=== PATIENT | female | born 1960 | race Caucasian/White ===

== ENCOUNTER 2016-12-03 06:16 | Emergency (ER) | payer MEDICAID ==
[~2016-12-03] VITALS: Ht 154.9 cm; Wt 72.7 kg
[~2016-12-03 06:16] MED LIST: BIAXIN 500MG T500 MG PO; CARAFATE 1GM1 G PO; COGENTIN .0.5 MG/TAB PO; FLAGYL500 MG PO; KEPPRA 500MG500 MG PO; KLONOPIN 0.5MG0.5 MG PO; LEVAQUIN 5500 MG/TA1 PO; NO HOME MEDICATIONS; NORCO 325 MG-51 TAB PO; NORCO 325 MG-7.1 TAB; PHENERGAN 25 TA25 MG PO; PRIL40 PO; PRILOSEC 20MG20 MG PO; PROTONIX 40MG T40 MG; PROTONIX 40MG T40 MG PO; RISPERDAL2 MG PO; ZOFRAN 4MG T4 MG/TAB PO; ZOFRAN ODT4 MG PO; [UNRECOGNIZED DRUG - OTHER]
[2016-12-03 06:19] VITALS: TEMP 98
[2016-12-03 07:33] LABS: BASO % 0.3 % (0.0-2.0); EOS % 0.1 % (0-4.0); GRAN # 10.3 (1.4-6.5); GRAN % 84.4 % (42.2-75.2); HEMATOCRIT 48.1 % (37.0-47.0); HEMOGLOBIN 16.3 g/dl (12.5-16.0); LYMPH # 1.2 (1.2-3.4); LYMPH % 9.8 % (20.0-51.0); MEAN CELL VOLUME 89 fl (80.0-100.0); MEAN CORPUSCULAR HEMOGLOBIN 30 pg (27.0-31.0); MEAN CORPUSCULAR HGB CONC 34 g/dl (33.0-37.0); MEAN PLATELET VOLUME 10.5 fl (7.4-10.4); MONO # 0.6 (0.1-0.6); MONO % 5.1 % (1.7-9.3); PLATELET COUNT 428 K/mm3 (130-400); RED BLOOD COUNT 5.43 M/mm3 (4.10-5.30); WHITE BLOOD COUNT 12.2 K/mm3 (4.8-10.8)
[2016-12-03 07:47] LABS: ADJUSTED CALCIUM 9.2 mg/dL (8.4-10.2); ALBUMIN 4.3 gm/dL (3.5-5.0); BILIRUBIN,TOTAL 0.9 mg/dL (0.0-1.0); CALCIUM 9.4 mg/dL (8.4-10.2); CREATININE, serum 0.86 mg/dL (0.52-1.25); TOTAL PROTEIN 7.6 gm/dL (6.4-8.2)
[2016-12-03 07:59] LABS: TROPONIN-I 0.012 ng/mL (0.000-0.034)
[2016-12-03 08:02] LABS: COLLECTION METHOD CLEAN CATCH
[2016-12-03 08:07] LABS: PARTIAL THROMBOPLASTIN TIME 33.1 SECONDS (26.0-37.0); PROTHROMBIN TIME 11.1 SECONDS (9.7-12.8)
[2016-12-03 08:11] LABS: MUCOUS Present /lpf; PH 5 (5-8); URINE APPEARANCE Hazy; URINE BACTERIA None Seen /hpf; URINE BILIRUBIN Negative (NEGATIVE); URINE BLOOD Negative (NEGATIVE); URINE COLOR Yellow; URINE GLUCOSE Negative (NEGATIVE); URINE KETONE 1+ (NEGATIVE); URINE LEUKOCYTE ESTERASE Negative (NEGATIVE); URINE PROTEIN(semi-quant) Negative (NEGATIVE); URINE RBC 0-2 /hpf; URINE WBC 0-2 /hpf
[2016-12-03] MEDS ORDERED: PRIL40 PO (09:15)
[2016-12-03] MEDS ORDERED: ZOFRAN8 MG PO (09:15)
[2016-12-03 09:24] VITALS: BP 112/71; PULSE 76
== END 2016-12-03 09:24 | disposition home or self-care (01) ==
LOC: COL.ER 06:16
PROVIDERS: Emergency Medicine
DX: K21.9 Gastro-esophageal reflux disease without esophagitis (principal); F31.9 Bipolar disorder, unspecified; Z87.19 Personal history of other diseases of the digestive system; Z90.710 Acquired absence of both cervix and uterus
CPT/HCPCS: J2405; J3010; J7030; Q9967

== ENCOUNTER 2016-12-19 12:42 | Day surgery (SDC) | payer MEDICAID ==
[~2016-12-19] VITALS: Ht 154.9 cm; Wt 65.7 kg
[~2016-12-19 12:42] MED LIST changes: +CARAFATE S1 GM/10 ML PO; +ZOFRAN8 MG PO
[2016-12-19 14:23] VITALS: BP 127/92; PULSE 67; TEMP 98.7
[2016-12-19 15:05] VITALS: BP 163/99; PULSE 56; TEMP 97.9
[2016-12-19 15:20] VITALS: BP 145/110; PULSE 57
[2016-12-19 15:35] VITALS: BP 163/94; PULSE 61
[2016-12-19] MEDS ORDERED: PRILOSEC 20MG20 MG PO (15:42)
[2016-12-19 15:50] VITALS: BP 171/99; PULSE 61
== END 2016-12-19 16:00 | disposition home or self-care (01) ==
LOC: SDCO 12:42
DX: K21.0 Gastro-esophageal reflux disease with esophagitis (principal); K22.2 Esophageal obstruction; K44.9 Diaphragmatic hernia without obstruction or gangrene; K29.30 Chronic superficial gastritis without bleeding; M19.90 Unspecified osteoarthritis, unspecified site; G40.909 Epilepsy, unspecified, not intractable, without status epilepticus; Z90.710 Acquired absence of both cervix and uterus; Z87.891 Personal history of nicotine dependence
CPT/HCPCS: OP; J2704; J7030

== ENCOUNTER 2017-02-22 01:02 | Emergency (ER) | payer MEDICAID ==
[2017-02-22 01:06] VITALS: TEMP 98.3
[2017-02-22 01:50] LABS: BASO # 0.1 (0.0-0.2); BASO % 0.5 % (0.0-2.0); EOS # 0.1 (0.0-0.7); EOS % 0.9 % (0-4.0); GRAN # 9.9 (1.4-6.5); GRAN % 83.7 % (42.2-75.2); HEMATOCRIT 43.1 % (37.0-47.0); HEMOGLOBIN 14.6 g/dl (12.5-16.0); LYMPH # 1.1 (1.2-3.4); LYMPH % 9.6 % (20.0-51.0); MEAN CELL VOLUME 89 fl (80.0-100.0); MEAN CORPUSCULAR HEMOGLOBIN 30 pg (27.0-31.0); MEAN CORPUSCULAR HGB CONC 34 g/dl (33.0-37.0); MEAN PLATELET VOLUME 10.2 fl (7.4-10.4); MONO # 0.6 (0.1-0.6); MONO % 4.8 % (1.7-9.3); PLATELET COUNT 355 K/mm3 (130-400); RED BLOOD COUNT 4.83 M/mm3 (4.10-5.30); REDCELL DISTRIBUTION WIDTH-CV 13.9 % (11.5-14.5)
[2017-02-22 01:59] LABS: ALANINE AMINOTRANSFERASE 24 U/L (9-52); ALKALINE PHOSPHATASE 75 U/L (50-136); ANION GAP 11 mmol/L (7-16); AST,SGOT 15 U/L (15-37); BILIRUBIN,TOTAL 0.4 mg/dL (0.0-1.0); BLOOD UREA NITROGEN 15 mg/dL (7-17); CALCIUM 9.2 mg/dL (8.4-10.2); CARBON DIOXIDE 21 mmol/L (22-30); CHLORIDE 110 mmol/L (98-107); CREATININE, serum 0.92 mg/dL (0.52-1.25); GLUCOSE 120 mg/dL (74-106); LIPASE 63 U/L (23-300); POTASSIUM 3.9 mmol/L (3.4-5.0); SODIUM 142 mmol/L (137-145); TOTAL PROTEIN 6.9 gm/dL (6.4-8.2)
[2017-02-22 02:11] LABS: TROPONIN-I < 0.012 ng/mL (0.000-0.034)
[2017-02-22 02:28] LABS: COLLECTION METHOD CLEAN CATCH
[2017-02-22 02:33] LABS: MUCOUS Present /lpf; PH 6 (5-8); URINE APPEARANCE Hazy; URINE BACTERIA Rare /hpf; URINE BILIRUBIN Negative (NEGATIVE); URINE BLOOD Negative (NEGATIVE); URINE COLOR Yellow; URINE GLUCOSE Negative (NEGATIVE); URINE KETONE Trace (NEGATIVE); URINE LEUKOCYTE ESTERASE Negative (NEGATIVE); URINE NITRATE Negative (NEGATIVE); URINE PROTEIN(semi-quant) Negative (NEGATIVE); URINE RBC 0-2 /hpf
[2017-02-22 03:06] VITALS: BP 132/106; PULSE 89
== END 2017-02-22 02:54 | disposition home or self-care (01) ==
LOC: COL.ER 01:02
PROVIDERS: Physician Assistant
DX: K29.70 Gastritis, unspecified, without bleeding (principal); K21.9 Gastro-esophageal reflux disease without esophagitis; F31.9 Bipolar disorder, unspecified; Z90.710 Acquired absence of both cervix and uterus
CPT/HCPCS: C9113; J2270; J2405; J7030

== ENCOUNTER 2018-03-12 16:03 | Emergency (ER) | payer MEDICAID ==
[~2018-03-12] VITALS: Ht 154.9 cm; Wt 56.8 kg
[2018-03-12 16:16] VITALS: TEMP 98
[2018-03-12 16:38] LABS: COLLECTION METHOD CLEAN CATCH
[2018-03-12 16:58] LABS: BASO # 0.1 (0.0-0.2); BASO % 0.6 % (0.0-2.0); EOS # 0.1 (0.0-0.7); EOS % 0.6 % (0-4.0); GRAN # 5.4 (1.4-6.5); GRAN % 66.1 % (42.2-75.2); HEMATOCRIT 44.7 % (37.0-47.0); HEMOGLOBIN 15.3 g/dl (12.5-16.0); LYMPH # 1.9 (1.2-3.4); LYMPH % 23.9 % (20.0-51.0); MEAN CELL VOLUME 88 fl (80.0-100.0); MEAN CORPUSCULAR HEMOGLOBIN 30 pg (27.0-31.0); MEAN CORPUSCULAR HGB CONC 34 g/dl (33.0-37.0); MEAN PLATELET VOLUME 9.9 fl (7.4-10.4); MONO # 0.7 (0.1-0.6); MONO % 8.6 % (1.7-9.3); PLATELET COUNT 359 K/mm3 (130-400); REDCELL DISTRIBUTION WIDTH-CV 14.2 % (11.5-14.5)
[2018-03-12 17:02] LABS: PH 5 (5-8); SQUAMOUS EPITHELIAL 20-50 /hpf; URINE APPEARANCE Cloudy; URINE BACTERIA None Seen /hpf; URINE BILIRUBIN Negative (NEGATIVE); URINE BLOOD Negative (NEGATIVE); URINE COLOR Amber; URINE GLUCOSE Negative (NEGATIVE); URINE KETONE 1+ (NEGATIVE); URINE LEUKOCYTE ESTERASE 3+ (NEGATIVE); URINE NITRATE Negative (NEGATIVE); URINE PROTEIN(semi-quant) 2+ (NEGATIVE); URINE RBC None Seen /hpf
[2018-03-12 17:11] LABS: ALBUMIN 4.2 gm/dL (3.5-5.0); BILIRUBIN,TOTAL 0.9 mg/dL (0.0-1.0); C-REACTIVE PROTEIN 2.7 mg/dL (0.0-0.9); CALCIUM 9.6 mg/dL (8.4-10.2); CREATININE, serum 0.91 mg/dL (0.52-1.25); POTASSIUM 3.7 mmol/L (3.4-5.0); TOTAL PROTEIN 7.2 gm/dL (6.4-8.2)
[2018-03-12 17:20] LABS: TROPONIN-I 0.016 ng/mL (0.000-0.035)
[2018-03-12 18:25] LABS: COLLECTION METHOD CATHETER
[2018-03-12 18:32] LABS: MUCOUS Present /lpf; PH 6 (5-8); SQUAMOUS EPITHELIAL 0-2 /hpf; URINE APPEARANCE Clear; URINE BACTERIA None Seen /hpf; URINE BILIRUBIN Negative (NEGATIVE); URINE BLOOD Negative (NEGATIVE); URINE COLOR Yellow; URINE GLUCOSE Negative (NEGATIVE); URINE KETONE 1+ (NEGATIVE); URINE LEUKOCYTE ESTERASE Negative (NEGATIVE); URINE NITRATE Negative (NEGATIVE); URINE PROTEIN(semi-quant) Negative (NEGATIVE); URINE RBC 0-2 /hpf
[2018-03-12] MEDS ORDERED: PROTONIX 40MG T40 MG PO (18:42)
[2018-03-12] MEDS ORDERED: ZOFRAN 4MG T4 MG/TAB PO (18:42)
[2018-03-12 19:04] VITALS: BP 144/85; PULSE 56
[2018-03-12] MEDS ORDERED: CARAFATE 1GM1 G PO (19:10)
== END 2018-03-12 19:33 | disposition home or self-care (01) ==
LOC: COL.ER 16:03
PROVIDERS: Emergency Medicine
DX: R11.10 Vomiting, unspecified (principal); R10.10 Upper abdominal pain, unspecified; Z90.710 Acquired absence of both cervix and uterus
CPT/HCPCS: J2405; J7030; Q9967

== ENCOUNTER 2018-05-05 10:21 | Emergency (ER) | payer MEDICAID ==
[~2018-05-05] VITALS: Ht 154.9 cm; Wt 59.1 kg
[2018-05-05 10:21] VITALS: TEMP 98.1
[2018-05-05 10:49] LABS: BASO # 0.1 (0.0-0.2); BASO % 0.6 % (0.0-2.0); EOS # 0.1 (0.0-0.7); EOS % 1.3 % (0-4.0); GRAN # 6.8 (1.4-6.5); GRAN % 68.8 % (42.2-75.2); HEMOGLOBIN 15.1 g/dl (12.5-16.0); LYMPH # 2.1 (1.2-3.4); LYMPH % 21.7 % (20.0-51.0); MEAN CELL VOLUME 87 fl (80.0-100.0); MEAN CORPUSCULAR HEMOGLOBIN 30 pg (27.0-31.0); MEAN CORPUSCULAR HGB CONC 34 g/dl (33.0-37.0); MEAN PLATELET VOLUME 10.1 fl (7.4-10.4); MONO # 0.7 (0.1-0.6); MONO % 7.2 % (1.7-9.3); PLATELET COUNT 359 K/mm3 (130-400); RED BLOOD COUNT 5.04 M/mm3 (4.10-5.30); REDCELL DISTRIBUTION WIDTH-CV 13.8 % (11.5-14.5)
[2018-05-05 11:05] LABS: ALBUMIN 3.9 gm/dL (3.5-5.0); BILIRUBIN,TOTAL 0.6 mg/dL (0.0-1.0); C-REACTIVE PROTEIN 5.4 mg/dL (0.0-0.9); CALCIUM 9.9 mg/dL (8.4-10.2); CREATININE, serum 0.87 mg/dL (0.52-1.25); TOTAL PROTEIN 7.3 gm/dL (6.4-8.2)
--- NOTE | 2018-05-05 12:10 | NUR ---
Medical staff reported that patient "seems sad" and wanted a health social work professor consult. machine operator hop worker offered emotional support to the patient as best she could as patient has difficulties hearing. Patient reported she lives with her daughter locally and besides her stomach pains she is feeling good mentally and physically. machine operator hop worker discussed local community resources and provided patient with a community resources packet and referred her to [facility], [facility], local mental health support groups, [facility], and local free meals to use as needed. No further needs at this time.
[2018-05-05 12:39] LABS: COLLECTION METHOD CLEAN CATCH
[2018-05-05] MEDS ORDERED: ZOFRAN ODT4 MG PO (12:41)
[2018-05-05 12:45] LABS: MUCOUS Present /lpf; PH 5 (5-8); SQUAMOUS EPITHELIAL 0-2 /hpf; URINE APPEARANCE Hazy; URINE BACTERIA Rare /hpf; URINE BILIRUBIN Negative (NEGATIVE); URINE BLOOD Negative (NEGATIVE); URINE COLOR Yellow; URINE GLUCOSE Negative (NEGATIVE); URINE KETONE 1+ (NEGATIVE); URINE LEUKOCYTE ESTERASE Negative (NEGATIVE); URINE NITRATE Negative (NEGATIVE); URINE PROTEIN(semi-quant) Negative (NEGATIVE); URINE RBC 0-2 /hpf
[2018-05-05 12:53] VITALS: BP 134/79; PULSE 59
== END 2018-05-05 12:54 | disposition home or self-care (01) ==
LOC: COL.ER 10:21
PROVIDERS: Family Medicine
DX: R10.9 Unspecified abdominal pain (principal)
CPT/HCPCS: J2405; J7030

== ENCOUNTER → 2018-06-27 | Outpatient (CLI) | payer MEDICAID ==
[2018-06-27 10:05] LABS: BASO # 0.1 (0.0-0.2); BASO % 0.9 % (0.0-2.0); EOS # 0.4 (0.0-0.7); EOS % 5.6 % (0-4.0); GRAN # 3.3 (1.4-6.5); GRAN % 49.1 % (42.2-75.2); HEMATOCRIT 42.4 % (37.0-47.0); LYMPH # 2.5 (1.2-3.4); LYMPH % 37.7 % (20.0-51.0); MEAN CELL VOLUME 91 fl (80.0-100.0); MEAN CORPUSCULAR HEMOGLOBIN 30 pg (27.0-31.0); MEAN CORPUSCULAR HGB CONC 33 g/dl (33.0-37.0); MEAN PLATELET VOLUME 9.9 fl (7.4-10.4); MONO # 0.4 (0.1-0.6); MONO % 6.2 % (1.7-9.3); PLATELET COUNT 352 K/mm3 (130-400); RED BLOOD COUNT 4.66 M/mm3 (4.10-5.30); REDCELL DISTRIBUTION WIDTH-CV 14.2 % (11.5-14.5)
[2018-06-27 10:16] LABS: ALBUMIN 3.7 gm/dL (3.5-5.0); BILIRUBIN,TOTAL 0.3 mg/dL (0.0-1.0); CALCIUM 9.5 mg/dL (8.4-10.2); CREATININE, serum 0.75 (0.52-1.25); POTASSIUM 3.7 mmol/L (3.4-5.0); TOTAL PROTEIN 6.6 gm/dL (6.4-8.2)
== END ==
LOC: COL.LAB 09:07
PROVIDERS: Family Medicine
DX: R10.9 Unspecified abdominal pain (principal)

== ENCOUNTER 2020-06-26 12:46 | Emergency (ER) | payer MEDICAID ==
[~2020-06-26] VITALS: Ht 154.9 cm; Wt 68.2 kg
[2020-06-26 13:23] LABS: BASO # 0.1 (0.0-0.2); BASO % 0.7 % (0.0-2.0); EOS # 0.3 (0.0-0.7); EOS % 2.6 % (0-4.0); GRAN # 7.1 (1.4-6.5); GRAN % 71.6 % (42.2-75.2); HEMATOCRIT 44.7 % (37.0-47.0); HEMOGLOBIN 15.2 g/dl (12.5-16.0); LYMPH # 1.9 (1.2-3.4); LYMPH % 19.2 % (20.0-51.0); MEAN CELL VOLUME 88 fl (80.0-100.0); MEAN CORPUSCULAR HEMOGLOBIN 30 pg (27.0-31.0); MEAN CORPUSCULAR HGB CONC 34 g/dl (33.0-37.0); MEAN PLATELET VOLUME 9.4 fl (7.4-10.4); MONO # 0.5 (0.1-0.6); MONO % 5.4 % (1.7-9.3); PLATELET COUNT 474 K/mm3 (130-400); RED BLOOD COUNT 5.06 M/mm3 (4.10-5.30); REDCELL DISTRIBUTION WIDTH-CV 13.4 % (11.5-14.5)
[2020-06-26 13:32] LABS: ALANINE AMINOTRANSFERASE 15 U/L (4-34); ALBUMIN 4.2 gm/dL (3.5-5.0); ALKALINE PHOSPHATASE 71 U/L (50-136); ANION GAP 11 mmol/L (7-16); AST,SGOT 17 U/L (15-37); BILIRUBIN,TOTAL 0.2 mg/dL (0.0-1.0); BLOOD UREA NITROGEN 13 mg/dL (7-17); C-REACTIVE PROTEIN < 0.5 mg/dL (0.0-0.9); CALCIUM 8.9 mg/dL (8.4-10.2); CARBON DIOXIDE 20 mmol/L (22-30); CHLORIDE 109 mmol/L (98-107); CREATININE, serum 0.62 (0.52-1.25); GLUCOSE 137 mg/dL (74-106); LIPASE 83 U/L (23-300); POTASSIUM 3.6 mmol/L (3.4-5.0); SODIUM 140 mmol/L (137-145); TOTAL PROTEIN 7.4 gm/dL (6.4-8.2)
[2020-06-26 15:05] LABS: COLLECTION METHOD CLEAN CATCH
[2020-06-26 15:14] LABS: PH 8 (5-8); SQUAMOUS EPITHELIAL None Seen /hpf; URINE APPEARANCE Clear; URINE BACTERIA None Seen /hpf; URINE BILIRUBIN Negative (NEGATIVE); URINE BLOOD Negative (NEGATIVE); URINE COLOR Straw; URINE GLUCOSE 1+ (NEGATIVE); URINE KETONE Negative (NEGATIVE); URINE LEUKOCYTE ESTERASE 2+ (NEGATIVE); URINE NITRATE Negative (NEGATIVE); URINE PROTEIN(semi-quant) Negative (NEGATIVE); URINE UROBILINOGEN Negative (NEGATIVE)
[2020-06-26 16:25] VITALS: BP 138/64; PULSE 72; TEMP 98.4
[2020-06-26] MEDS ORDERED: ZOFRAN ODT4 MG PO (16:26)
[2020-06-27] MEDS ORDERED: LEVAQUIN 5500 MG/TA1 PO (11:53)
== END 2020-06-26 16:44 | disposition home or self-care (01) ==
LOC: COL.ER 12:46
PROVIDERS: Family Medicine
DX: R10.84 Generalized abdominal pain (principal); R11.2 Nausea with vomiting, unspecified; Z79.899 Other long term (current) drug therapy
CPT/HCPCS: J0696; J2060; J2405; J3010; J7120; Q9967

== ENCOUNTER 2020-06-30 01:54 | Emergency (ER) | payer MEDICAID ==
[~2020-06-30] VITALS: Ht 157.5 cm; Wt 77.3 kg
[2020-06-30 02:06] LABS: BASO # 0.1 (0.0-0.2); BASO % 0.7 % (0.0-2.0); EOS # 0.2 (0.0-0.7); GRAN # 6.4 (1.4-6.5); GRAN % 68.1 % (42.2-75.2); HEMOGLOBIN 15.8 g/dl (12.5-16.0); LYMPH # 2.3 (1.2-3.4); MEAN CELL VOLUME 90 fl (80.0-100.0); MEAN CORPUSCULAR HEMOGLOBIN 30 pg (27.0-31.0); MEAN CORPUSCULAR HGB CONC 34 g/dl (33.0-37.0); MEAN PLATELET VOLUME 9.3 fl (7.4-10.4); MONO # 0.5 (0.1-0.6); PLATELET COUNT 483 K/mm3 (130-400); RED BLOOD COUNT 5.21 M/mm3 (4.10-5.30); REDCELL DISTRIBUTION WIDTH-CV 13.3 % (11.5-14.5)
[2020-06-30 02:18] LABS: ALBUMIN 4.5 gm/dL (3.5-5.0); BILIRUBIN,TOTAL 0.4 mg/dL (0.0-1.0); CALCIUM 9.2 mg/dL (8.4-10.2); CREATININE, serum 0.8 (0.52-1.25); POTASSIUM 3.8 mmol/L (3.4-5.0); TOTAL PROTEIN 8.1 gm/dL (6.4-8.2)
[2020-06-30 02:20] LABS: COLLECTION METHOD CLEAN CATCH
[2020-06-30 02:34] LABS: AMORPHOUS CRYSTAL Present /uL; MUCOUS Present /lpf; PH 7 (5-8); URINE APPEARANCE Cloudy; URINE BACTERIA None Seen /hpf; URINE BILIRUBIN Negative (NEGATIVE); URINE BLOOD Negative (NEGATIVE); URINE COLOR Yellow; URINE GLUCOSE Negative (NEGATIVE); URINE KETONE Trace (NEGATIVE); URINE LEUKOCYTE ESTERASE 2+ (NEGATIVE); URINE NITRATE Negative (NEGATIVE); URINE PROTEIN(semi-quant) Negative (NEGATIVE); URINE RBC 0-2 /hpf
[2020-06-30] MEDS ORDERED: PRILOTC PO (02:42)
[2020-06-30] MEDS ORDERED: CARAFATE 1GM1 G PO (02:48)
[2020-06-30 03:01] VITALS: BP 129/91; PULSE 89; TEMP 98.2
--- NOTE | 2020-06-30 11:39 | NUR ---
Director Of Safety attempted to contact patient at phone #[phone]. This is the number also listed for patient's daughter, Lisset. SW left a voicemail to follow up.
--- NOTE | 2020-07-01 13:17 | NUR ---
Camera Tuning Engineer was able to make contact with patient's daughter, Lisset to follow up. Lisset advised that patient lives with her and her , Suman and was being seen at the [facility] for primary care. Lisset reports patient had not been seen by primary care since before COVID. Lisset was open to having SW send referral to [facility] to establish a new PCP. Lisset reports she or her turkey picker patient's medications from [facility]. Lisset advised that patient does not use any DME besides a hearing aide and is independent with ADLS. Lisset does have to prompt patient to take baths, but reports patient can bathe without any physical assistance. Lisset does not think patient has ever completed DPOA-HC. Lisset advised patient is not and has four children. Lisset states her three siblings live in [place]. Lisset reports they normally keep food locked up due to patient's history of overeating and prior ulcer, however Lisset's son had left the fridge unlocked and patient ate almost an entire spiral ham, prompting their visit to the ED. Lisset states patient has dementia and doesn't realize how much she eats. Lisset advised she plans to call the [facility] today and sign patient up for the COVID vaccine. After the call with Lisset, CHRIS contacted Suzanne at [facility] and gave referral. Suzanne to follow up with both CHRIS and Lisset about accepting physician.
--- NOTE | 2020-07-02 11:48 | NUR ---
Engine Assembly Supervisor received a message from Suzanne at [facility] who advised both Dr. Geronimo and Dr. Krishnamurthy have declined patient so their office will be unable to provide services. [facility] and was advised they could not schedule an appointment for patient until October. CHRIS contacted [facility], [facility], and [facility]. All three offices cannot accept Medicaid at this time. CHRIS contacted [facility] and scheduled an appoointment for 08/18/20 @ 7013. CHRIS contacted patient's daughter and provided appointment. CHRIS also faxed records to [facility].
--- NOTE | 2020-07-02 13:46 | NUR ---
Acid Tester made report to Adult Protective Services as patient was seen again in the ED on 07/01/20 and per ED notes, patient's family finally picked up medications however patient had not taken them.
== END 2020-06-30 03:01 | disposition home or self-care (01) ==
LOC: COL.ER 01:54
PROVIDERS: Emergency Medicine
DX: R10.9 Unspecified abdominal pain (principal); R11.2 Nausea with vomiting, unspecified
CPT/HCPCS: J0780; J2405; J3010; J7030

== ENCOUNTER 2020-07-01 17:01 | Emergency (ER) | payer MEDICAID ==
[~2020-07-01] VITALS: Ht 154.9 cm; Wt 70.5 kg
[~2020-07-01 17:01] MED LIST changes: +PRILOTC PO
[2020-07-01 17:04] VITALS: TEMP 98
[2020-07-01 17:30] LABS: BASO % 0.6 % (0.0-2.0); EOS # 0.2 (0.0-0.7); EOS % 3.7 % (0-4.0); GRAN # 4.1 (1.4-6.5); GRAN % 65.8 % (42.2-75.2); HEMATOCRIT 40.2 % (37.0-47.0); LYMPH # 1.5 (1.2-3.4); LYMPH % 24.3 % (20.0-51.0); MEAN CELL VOLUME 90 fl (80.0-100.0); MEAN CORPUSCULAR HEMOGLOBIN 30 pg (27.0-31.0); MEAN CORPUSCULAR HGB CONC 34 g/dl (33.0-37.0); MEAN PLATELET VOLUME 9.6 fl (7.4-10.4); MONO # 0.3 (0.1-0.6); MONO % 5.4 % (1.7-9.3); PLATELET COUNT 401 K/mm3 (130-400); RED BLOOD COUNT 4.46 M/mm3 (4.10-5.30); REDCELL DISTRIBUTION WIDTH-CV 13.7 % (11.5-14.5)
[2020-07-01 17:40] LABS: ALANINE AMINOTRANSFERASE 11 U/L (4-34); ALBUMIN 3.5 gm/dL (3.5-5.0); ALKALINE PHOSPHATASE 52 U/L (50-136); ANION GAP 9 mmol/L (7-16); AST,SGOT 17 U/L (15-37); BILIRUBIN,TOTAL 0.4 mg/dL (0.0-1.0); BLOOD UREA NITROGEN 6 mg/dL (7-17); CALCIUM 8.3 mg/dL (8.4-10.2); CARBON DIOXIDE 20 mmol/L (22-30); CHLORIDE 112 mmol/L (98-107); CREATININE, serum 0.62 (0.52-1.25); GLUCOSE 93 mg/dL (74-106); LIPASE 54 U/L (23-300); POTASSIUM 3.7 mmol/L (3.4-5.0); SODIUM 141 mmol/L (137-145); TOTAL PROTEIN 6.4 gm/dL (6.4-8.2)
[2020-07-01 17:52] LABS: TROPONIN-I < 0.012 ng/mL (0.000-0.035)
[2020-07-01 17:53] LABS: HEMOGLOBIN 13.5 g/dl (12.5-16.0)
[2020-07-01 18:05] LABS: COLLECTION METHOD CLEAN CATCH
[2020-07-01 18:10] LABS: MUCOUS Present /lpf; PH 6 (5-8); SQUAMOUS EPITHELIAL 0-2 /hpf; URINE APPEARANCE Hazy; URINE BACTERIA Rare /hpf; URINE BILIRUBIN Negative (NEGATIVE); URINE BLOOD Negative (NEGATIVE); URINE COLOR Yellow; URINE GLUCOSE Negative (NEGATIVE); URINE KETONE Negative (NEGATIVE); URINE LEUKOCYTE ESTERASE 1+ (NEGATIVE); URINE NITRATE Negative (NEGATIVE); URINE PROTEIN(semi-quant) Negative (NEGATIVE); URINE RBC 0-2 /hpf; URINE UROBILINOGEN Negative (NEGATIVE)
[2020-07-01 20:16] VITALS: BP 172/95; PULSE 55
== END 2020-07-01 20:19 | disposition home or self-care (01) ==
LOC: COL.ER 17:01
PROVIDERS: Emergency Medicine
DX: N39.0 Urinary tract infection, site not specified (principal)
CPT/HCPCS: J1956; J2270; J2405

== ENCOUNTER 2020-08-12 08:44 | Emergency (ER) | payer MEDICAID ==
[~2020-08-12] VITALS: Ht 154.9 cm; Wt 65.9 kg
[2020-08-12 09:00] VITALS: TEMP 97.8
[2020-08-12 09:55] LABS: BASO % 0.2 % (0.0-2.0); GRAN % 85.1 % (42.2-75.2); HEMATOCRIT 46.2 % (37.0-47.0); HEMOGLOBIN 15.9 g/dl (12.5-16.0); LYMPH % 8.4 % (20.0-51.0); MEAN CELL VOLUME 87 fl (80.0-100.0); MEAN CORPUSCULAR HEMOGLOBIN 30 pg (27.0-31.0); MEAN CORPUSCULAR HGB CONC 34 g/dl (33.0-37.0); MONO # 0.7 (0.1-0.6); PLATELET COUNT 434 K/mm3 (130-400); RED BLOOD COUNT 5.31 M/mm3 (4.10-5.30); REDCELL DISTRIBUTION WIDTH-CV 13.4 % (11.5-14.5)
[2020-08-12 10:06] LABS: ALBUMIN 4.4 gm/dL (3.5-5.0); BILIRUBIN,TOTAL 0.9 mg/dL (0.0-1.0); CALCIUM 9.5 mg/dL (8.4-10.2); CREATININE, serum 0.82 (0.52-1.25); POTASSIUM 3.3 mmol/L (3.4-5.0); TOTAL PROTEIN 7.8 gm/dL (6.4-8.2)
[2020-08-12 11:39] LABS: GASTROCCULT POSITIVE; pH GASTRIC CONTENTS 2
[2020-08-12 13:12] VITALS: BP 160/98; PULSE 90
--- NOTE | 2020-08-12 15:54 | NUR ---
Lime Puller was contacted by Vicky LAMAR who advised patient is ready for discharge and patient's family plans to pay for a taxi ride home for her. Vicky expressed some concern with this plan and wanted to ensure that patient's daughter, Lisset or someone would be home to meet patient. Vicky reports patient has been ambulating fine. Vicky advised they also want to ensure patient's family understands discharge instructions before discharge. ED staff are having some difficulty reaching the family. CHRIS attempted to contact Lisset at [phone] with no answer. CHRIS contacted another phone number for a different family member, Suman ([phone]). Suman answered and was actually with Lisset. CHRIS spoke with Lisset who advised they now have a vehicle available and will pickle solution maker patient themselves. Lisset advised they would be on their way soon. CHRIS notified WILLARD Perry.
[2020-08-13] MEDS ORDERED: ASPIRIN 81M81 MG/TA2 PO (09:25)
== END 2020-08-12 16:20 | disposition home or self-care (01) ==
LOC: COL.ER 08:44
PROVIDERS: Emergency Medicine
DX: N39.0 Urinary tract infection, site not specified (principal); K20.90 Esophagitis, unspecified without bleeding
CPT/HCPCS: C9113; J1630; J2405; Q9967

== ENCOUNTER 2020-08-13 09:01 | Day surgery (SDC) | payer MEDICAID ==
[~2020-08-13] VITALS: Ht 154.9 cm; Wt 60.4 kg
[2020-08-13] MEDS ORDERED: ASPIRIN 81M81 MG/TA2 PO (09:25)
[2020-08-13 09:34] VITALS: BP 86/64; PULSE 59; TEMP 98.4
[2020-08-13 11:52] LABS: BASO % 0.4 % (0.0-2.0); EOS # 0.1 (0.0-0.7); EOS % 1.1 % (0-4.0); GRAN # 4.9 (1.4-6.5); GRAN % 60.8 % (42.2-75.2); HEMATOCRIT 41.6 % (37.0-47.0); LYMPH # 2.2 (1.2-3.4); LYMPH % 27.3 % (20.0-51.0); MEAN CORPUSCULAR HGB CONC 33 g/dl (33.0-37.0); MEAN PLATELET VOLUME 10.1 fl (7.4-10.4); MONO # 0.8 (0.1-0.6); RED BLOOD COUNT 4.53 M/mm3 (4.10-5.30); REDCELL DISTRIBUTION WIDTH-CV 13.6 % (11.5-14.5)
[2020-08-13 11:54] LABS: HEMOGLOBIN 13.8 g/dl (12.5-16.0); MEAN CELL VOLUME 92 fl (80.0-100.0); MEAN CORPUSCULAR HEMOGLOBIN 30 pg (27.0-31.0); PLATELET COUNT 308 K/mm3 (130-400)
[2020-08-13 12:10] VITALS: BP 166/89; PULSE 60; TEMP 99
[2020-08-13 12:37] VITALS: BP 97/48
[2020-08-13 12:51] VITALS: BP 90/73; PULSE 81
--- NOTE | 2020-08-13 14:06 | NUR ---
1210 Pt returns from endo procedure via cart. Pt ambulates from cart to recliner with RN assist. Monitors on and alarms set. Call light within reach. Report received from WILLARD Gunter. Pt requests orange juice. Pt has complaints of pain in her abdomen. Warm blanket brought. Pt also complains of nausea. Emesis bag given to pt and Zofran 4 mg IV given to pt. Pt attempts to vocalize. Pt appears to respond clearly periodically and speaks repetitive sounds frequently. 1220 Pt takes orange juice well. 1225 Pt requests bathroom, and pt walked to bathroom with Yee RN assist, and returns from bathroom with Yee RN assist. 1247 This RN has remained in pt room the duration of the pt's stay to assist the pt, keep her from walking away, and to comfort her. Attempt to call daughter multiple times to have her come to be with pt and to give discharge instructions to. 1255 Pt escorted to the restroom again with this RN assist, pt voids, and accompanied back to room with this RN assist. Pt's daughter calls and states she'll be here soon to lease picker her mom. 1318 Attempt to call pt's daughter again with no response. Pt's daughter is not here that we notice. 1338 Attempt to call pt's daughter again with no response. 1355 Pt's daughter calls Endo department and is here to receive discharge instructions. Daughter brought to pt room and discharge instructions reviewed with her and pt. All questions answered to her satisfaction. 1406 Pt escorted with daughter assist and this RN assist to private vehicle driven by friends.
== END 2020-08-13 14:06 | disposition home or self-care (01) ==
LOC: SDCO 09:01
PROVIDERS: Internal Medicine Gastroenterology
DX: K22.2 Esophageal obstruction (principal); K21.00 Gastro-esophageal reflux disease with esophagitis, without bleeding; K92.0 Hematemesis; K44.9 Diaphragmatic hernia without obstruction or gangrene; K92.1 Melena; M19.90 Unspecified osteoarthritis, unspecified site; G40.909 Epilepsy, unspecified, not intractable, without status epilepticus; G89.29 Other chronic pain; F17.210 Nicotine dependence, cigarettes, uncomplicated; F41.9 Anxiety disorder, unspecified; Z79.899 Other long term (current) drug therapy; Z20.822 Contact with and (suspected) exposure to COVID-19; Z90.710 Acquired absence of both cervix and uterus; Z87.11 Personal history of peptic ulcer disease
CPT/HCPCS: J2405; J2704; J7120

== ENCOUNTER → 2023-08-23 | Outpatient (CLI) | payer MEDICARE, MEDICAID ==
[~2023-08-23] MED LIST changes: +ASPIRIN 81M81 MG/TA2 PO; +ATARAX50 MG PO; +CEPHALEXIN500 M1 PO
== END ==
LOC: COL.RAD 07:12
DX: I63.81 Other cerebral infarction due to occlusion or stenosis of small artery (principal); I67.82 Cerebral ischemia; D75.1 Secondary polycythemia